=== PATIENT | male | born 1965 | race Caucasian/White ===

== ENCOUNTER 2024-11-09 09:14 | Emergency (ER) | payer SELFPAY ==
[~2024-11-09] VITALS: Ht 167.6 cm; Wt 58.0 kg
[2024-11-09 09:15] VITALS: O2SAT 97
[2024-11-09 10:12] LABS: BASOPHILS % 0.3 % (0.0-2.0); EOSINOPHILS % 0.2 % (0.0-5.0); HEMATOCRIT. 47.3 % (42.0-52.0); HEMOGLOBIN. 15.8 g/dL (14.0-18.0); LYMPHOCYTES % 28.9 % (20.0-50.0); MEAN PLATELET VOLUME 9.9 fl (7.4-10.4); MONOCYTES % 5.1 % (2.0-8.0); NEUTROPHILS % 65.5 % (40.0-76.0); PLATELET 241 x1000/uL (130-400); RED BLOOD CELL COUNT 4.83 mill/uL (4.7-6.1); RED CELL DISTRIBUTION WIDTH 13.6 % (11.6-14.6)
[2024-11-09 10:28] LABS: CREATININE 0.7 mg/dL (0.6-1.3); UREA NITROGEN BLOOD 11 mg/dL (9-23)
[2024-11-09 10:30] LABS: ASPARTATE AMINOTRANSFERASE 34 IU/L (<34); BILIRUBIN DIRECT 0.2 mg/dL (<=3.0); BILIRUBIN TOTAL 0.9 mg/dL (0.1-1.0); PROTEIN TOTAL 7.5 g/dL (6.0-8.3)
[2024-11-09 12:00] VITALS: BP 101/53; PULSE 110; RESP 16; TEMP 36.8; O2SAT 98
[2024-11-09] MEDS ORDERED: LORAZEPAM 2MG/ML UD SYRINGE IV PRN ×2 (13:00)
[2024-11-09] MEDS ORDERED: GUAIFENESIN 200MG/10ML SUGAR FREE UDC PO PRN (13:00)
[2024-11-09] MEDS ORDERED: ACETAMINOPHEN 325MG TABLET PO PRN ×2 (13:00)
[2024-11-09] MEDS ORDERED: ONDANSETRON HCL 4MG/2ML INJ IV PRN (13:00)
[2024-11-09] MEDS ORDERED: IPRATROPIUM/ALBUTEROL 0.5-3(2.5)MG/3ML NEB HHN PRN (13:00)
[2024-11-09] MEDS ORDERED: CLONIDINE 0.1MG TABLET PO PRN (13:00)
[2024-11-09] MEDS ORDERED: DOCUSATE SODIUM 100MG CAPSULE PO PRN (13:00)
[2024-11-09] MEDS ORDERED: MVI, ADULT NO.1 10 ML, FOLIC ACID 1 MG, THIAMINE HCL 100 MG in SODIUM CHLORIDE 0.9% 1,0... IV ONE (13:30)
[2024-11-10] MEDS ORDERED: MULTIVITAMINS,THER W-MINERALS TABLET PO SCH (09:00)
[2024-11-10] MEDS ORDERED: THIAMINE HCL 100 MG/1 ML 2ML VIAL IM SCH (09:00)
[2024-11-10] MEDS ORDERED: FOLIC ACID 1MG TABLET PO SCH (09:00)
[2024-11-13] MEDS ORDERED: THIAMINE HCL 100MG TABLET PO SCH (09:00)
== END 2024-11-09 14:13 | disposition admitted as inpatient to this hospital (09) ==
LOC: ER 09:14 → EDBEDREQTM 11:23 → EDBEDREQ 11:23 → ER 14:13 → CMPBEDREQ 17:25
DX: F10.129 Alcohol abuse with intoxication, unspecified (principal); R41.82 Altered mental status, unspecified; E87.0 Hyperosmolality and hypernatremia; Z59.00 Homelessness unspecified; Z79.899 Other long term (current) drug therapy; Y90.8 Blood alcohol level of 240 mg/100 ml or more
CPT/HCPCS: 80076; 80048; 80307; 80329; 80320; 85025; 36415; 71045; 70450; 93005; 99285; Z7610; A4606; J3411; J3490; J7030; G0480